=== PATIENT | male | born 2000 | race African-American/Black ===

== ENCOUNTER 2019-10-21 22:13 | Emergency (ER) | payer OTHER ==
[~2019-10-21] VITALS: Ht 175.3 cm; Wt 54.7 kg
[2019-10-21 23:03] VITALS: BP 124/78
== END 2019-10-22 | disposition home or self-care (01) ==
LOC: ER 22:16
DX: S33.5XXA Sprain of ligaments of lumbar spine, initial encounter (principal); M62.838 Other muscle spasm; R51 Headache; V89.2XXA Person injured in unspecified motor-vehicle accident, traffic, initial encounter; Y93.89 Activity, other specified; Y92.410 Unspecified street and highway as the place of occurrence of the external cause; Y99.8 Other external cause status
CPT/HCPCS: 70450; 72125; 72131; 73630